=== PATIENT | male | born 1980 | race American Indian/Alaskan Native ===

== ENCOUNTER 2017-11-13 07:13 | Emergency (ER) | payer OTHER ==
--- NOTE | 2017-11-13 09:02 | Emergency Department Report ---
HPI - General Chief Complaint: Psych Time Seen by Provider: 11/13/17 08:49 - HPI HPI: [facility] The patient is a 37-year-old male presenting with a chief complaint of suicidal ideation. The patient states he got into an argument with his girlfriend and "swallowed bleach." The patient states at 04:30 he took one swig of bleach, realized it tasted nasty and spit it out. Patient denies any other ingestions or attempt at harming himself. Patient complains of mild tingling of his lips currently otherwise asymptomatic. The patient states it was household bleach. Patient was brought in by police under a 1013 that documents "subject crying. Depressed. Drank bleach in an apparent suicide attempt." Location: Mental state Duration: [See above] Quality: Suicidal Severity: Severe Modifying factors: [see above] Context: [see above] Mode of transportation: [not driving] ED Past Medical Hx - Past Medical History Hx Asthma: Yes - Surgical History Past Surgical History?: Yes Hx Appendectomy: Yes Additional Surgical History: wrist fracture - Family History Family history: no significant - Social History Smoking Status: Never Smoker Substance Use Type: None (denies illicit drug use), Alcohol (occasional) ED Review of Systems ROS: Stated complaint: MH Other details as noted in HPI Neurological: paresthesias Psychiatric: suicidal thoughts Physical Exam - Physical Exam Vital Signs: Vital Signs 11/13/17 11/13/17 07:59 08:20 Temperature 98.6 F 97.6 F Pulse Rate 55 L 55 L Respiratory 18 18 Rate Blood Pressure 117/76 Blood Pressure 117/76 [Left] O2 Sat by Pulse 99 99 Oximetry Physical Exam: GENERAL: The patient is well-developed well-nourished male sitting in chair not appearing to be in acute distress. [] HEENT: Normocephalic. Atraumatic. Extraocular motions are intact. Patient has moist mucous membranes. Oropharynx clear. No evidence of lindsay/irritation to the lips or oral mucosal NECK: Supple. Trachea midline CHEST/LUNGS: Clear to auscultation. There is no respiratory distress noted. HEART/CARDIOVASCULAR: Regular. There is no tachycardia. There is no gallop rub or murmur. ABDOMEN: Abdomen is soft, nontender. Patient has normal bowel sounds. There is no abdominal distention. SKIN: There is no rash. There is no edema. There is no diaphoresis. NEURO: The patient is awake, alert, and oriented. The patient is cooperative. The patient has normal speech MUSCULOSKELETAL: There is no evidence of acute injury. ED Course Vital Signs 11/13/17 11/13/17 07:59 08:20 Temperature 98.6 F 97.6 F Pulse Rate 55 L 55 L Respiratory 18 18 Rate Blood Pressure 117/76 Blood Pressure 117/76 [Left] O2 Sat by Pulse 99 99 Oximetry - Consultations Consultation #1: 11/13/17 09:04 Poison control called 11/13/17 09:10 Recommend symptomatic and supportive care. May have patient drink water ED Medical Decision Making - Lab Data Result diagrams: 11/13/17 10:03 11/13/17 10:03 Laboratory Tests 11/13/17 11/13/17 11/13/17 10:03 10:03 10:03 WBC RBC Hgb Hct MCV MCH MCHC RDW Plt Count Lymph % (Auto) [place] % (Auto) Eos % (Auto) Baso % (Auto) Lymph # [place] # Eos # Baso # Seg Neutrophils % Seg Neutrophils # Sodium 140 Potassium 4.6 Chloride 101.6 Carbon Dioxide 26 Anion Gap 17 BUN 9 Creatinine 0.8 Estimated GFR > 60 BUN/Creatinine Ratio 11 Glucose 91 Calcium 9.4 Salicylates < 0.3 L Acetaminophen < 15.0 Plasma/Serum Alcohol 11/13/17 11/13/17 10:03 10:03 WBC 6.3 RBC 5.01 Hgb 15.5 H Hct 47.3 H MCV 94 MCH 31 MCHC 33 RDW 14.3 Plt Count 267 Lymph % (Auto) 37.9 H [place] % (Auto) 6.5 Eos % (Auto) 0.3 Baso % (Auto) 0.4 Lymph # 2.4 [place] # 0.4 Eos # 0.0 Baso # 0.0 Seg Neutrophils % 54.9 Seg Neutrophils # 3.5 Sodium Potassium Chloride Carbon Dioxide Anion Gap BUN Creatinine Estimated GFR BUN/Creatinine Ratio Glucose Calcium Salicylates Acetaminophen Plasma/Serum Alcohol < 0.01 - Differential Diagnosis suicidal ideation Critical care attestation.: If time is entered above; I have spent that time in minutes in the direct care of this critically ill patient, excluding procedure time. ED Disposition Clinical Impression: Suicidal ideation Disposition: [id number]/TX-65 PSY HOSP/PSY UNIT Is pt being admited?: No Does the pt Need Aspirin: No Condition: Serious Referrals: PRIMARY CARE, [Primary Care Provider] - 3-5 Days Time of Disposition: 16:15 (awaiting placement)
[2017-11-13 10:10] LABS: Basophils % (Auto) 0.4 % (0.0-1.8); Eosinophils % (Auto) 0.3 % (0.0-4.3); Hematocrit 47.3 % (35.5-45.6); Hemoglobin 15.5 gm/dl (11.8-15.2); Lymphocytes # (Auto) 2.4 K/mm3 (1.2-5.4); Lymphocytes % (Auto) 37.9 % (13.4-35.0); Mean Corpuscular HGB Conc 33 % (32-34); Mean Corpuscular Hemoglobin 31 pg (28-32); Mean Corpuscular Volume 94 fl (84-94); Monocytes # (Auto) 0.4 K/mm3 (0.0-0.8); Monocytes % (Auto) 6.5 % (0.0-7.3); Platelet Count 267 K/mm3 (140-440); Red Blood Count 5.01 M/mm3 (3.65-5.03); Red Cell Distribution Width 14.3 % (13.2-15.2)
[2017-11-13 10:48] LABS: BUN/Creatinine Ratio 11; Blood Urea Nitrogen 9 mg/dL (9-20); Calcium 9.4 mg/dL (8.4-10.2); Hemolysis Index 8
--- NOTE | 2017-11-13 13:14 | Consultation ---
History of Present Illness - Reason for Consult Consult date: 11/13/17 Reason for consult: Mental Health Evaluation Requesting physician: EMERSON JOHNSON - Chief Complaint Chief complaint: "I don't know why I did it" - History of Present Psychiatric Illness The patient is a 37-year-old male presenting with a chief complaint of suicidal ideation. Today the patient is calm and cooperative during the assessment. He stated that he drink bleach after getting into an argument with his girlfriend. He stated that he was upset and didn't realize what he was doing. He stated that this is his first time trying to harm himself. He denies wanting to kill himself prior to his admission. Per the record the patient was brought in to the ER in 2016 for possible depression. He stated that he argues with people frequently when he feel they are not listening to him and or not getting his way. He stated that his "anger" has always been an issue in his life. He denies SI/HI's and AVH's. He denies sleep disturbance and a poor appetite. He denies recreational drug use and alcohol consumption (etoh). Medications and Allergies Allergies Allergy/AdvReac Type Severity Reaction Status Date / Time shrimp Allergy Vomiting Verified 04/02/16 00:24 Home Medications Medication Instructions Recorded Confirmed Last Taken Type No Known Home Medications [No 11/13/17 11/13/17 Unknown History Reported Home Medications] Past psychiatric history - Past Medical History Past Medical History: No medical history Past Surgical History: No surgical history - past Psychiatric treatment and history psychiatric treatment history: Denies a psy hx. Denies a fam psy hx. - Social History Social history: lives with family (HS and College Graduate) Mental Status Exam - Vital signs Last Vital Signs Temp 97.6 F 11/13/17 08:20 Pulse 55 L 11/13/17 08:20 Resp 18 11/13/17 08:20 BP 117/76 11/13/17 08:20 Pulse Ox 99 11/13/17 08:20 - Exam Narrative exam: MSE: Appearance: calm, cooperative Behavior: good eye contact Speech: regular rate and tone Mood: "okay" Affect: congruent to mood Thought Process: circumstantial Thought Content: denies SI/HI's and AVH's Motor Activity: ambulatory Cognition: A/O x3 Insight: fair Judgment: variable Results Result Diagrams: 11/13/17 10:03 11/13/17 10:03 Abnormal lab results 11/13/17 Range/Units 10:03 Hgb 15.5 H (11.8-15.2) gm/dl Hct 47.3 H (35.5-45.6) % Lymph % (Auto) 37.9 H (13.4-35.0) % All other labs normal. Assessment and Plan Assessment and plan: Impression: Unspecified Mood DO. Today the patient is calm and cooperative during the assessment. UDS has not been collected. DDx: R/O Bipolar DO, R/O MDD, R/O Personality DO Recommendation/Plan: Continue 1013 with placement to inpatient psy services. Gather collateral information to determine proper treatment.
--- NOTE | 2017-11-14 10:07 | Progress Note ---
Subjective - Reason for Consult Consult date: 11/14/17 Reason for consult: Psychiatry Follow-up - Chief Complaint Chief complaint: "Hello" The patient is a 37-year-old male presenting with a chief complaint of suicidal ideation. Today the patient is calm and cooperative during the assessment. He stated that he would like to speak with a therapist about his anger once discharged. He stated that he spoke with a therapist in the past, but he felt like the person wasn't certified and it wasn't a good fit. He stated that he want to get a better "handle" on how to deal with crisis and not act out. He denies SI/HI's and AVH's. Mental Status Exam - Vital signs Last Vital Signs Temp 97.8 F 11/14/17 08:16 Pulse 63 11/14/17 08:16 Resp 16 11/14/17 08:18 BP 114/68 11/14/17 08:16 Pulse Ox 99 11/14/17 08:18 - Exam Narrative exam: MSE: Appearance: calm, cooperative Behavior: good eye contact Speech: regular rate and tone Mood: "okay" Affect: congruent to mood Thought Process: circumstantial Thought Content: denies SI/HI's and AVH's Motor Activity: ambulatory Cognition: A/O x3 Insight: fair Judgment: variable Assessment and Plan Impression: Unspecified Mood DO. Today the patient is calm and cooperative during the assessment. UDS has not been collected. DDx: R/O Bipolar DO, R/O MDD, R/O Personality DO Recommendation/Plan: Continue 1013 with placement to inpatient psy services. Patient would like to speak with a therapist for anger management once discharged.
--- NOTE | 2017-11-16 10:16 | Progress Note ---
Subjective - Reason for Consult Consult date: 11/16/17 Reason for consult: Psychiatry Follow-up - Chief Complaint Chief complaint: "Good morning" The patient is a 37-year-old male presenting with a chief complaint of suicidal ideation. Today the patient is calm and cooperative during the assessment. He stated that he reflected on his actions prior his before his admission. He stated that he should have made a better decision other than drink a small amount of bleach prior to his admission to the hospital. He denies SI/HI's and AVH's. Mental Status Exam - Vital signs Last Vital Signs Temp 98.4 F 11/15/17 09:27 Pulse 62 11/15/17 09:27 Resp 16 11/15/17 10:03 BP 112/71 11/15/17 09:27 Pulse Ox 98 11/15/17 10:03 - Exam Narrative exam: MSE: Appearance: calm, cooperative Behavior: good eye contact Speech: regular rate and tone Mood: "okay" Affect: congruent to mood Thought Process: linear Thought Content: denies SI/HI's and AVH's Motor Activity: ambulatory Cognition: A/O x3 Insight: fair Judgment: fair Assessment and Plan Impression: Unspecified Mood DO. Today the patient is calm and cooperative during the assessment. UDS was not collected. DDx: R/O Bipolar DO, R/O MDD, R/O Personality DO Recommendation/Plan: Evaluate 1013 in 24 hours. Patient would like to speak with a therapist for anger management once discharged.
[2017-11-17 09:07] VITALS: BP 111/69
--- NOTE | 2017-11-17 09:48 | Progress Note ---
Subjective - Reason for Consult Consult date: 11/17/17 Reason for consult: Psychiatry Follow-up - Chief Complaint Chief complaint: "How are you" The patient is a 37-year-old male presenting with a chief complaint of suicidal ideation. Today the patient is calm and cooperative during the assessment. He was told that he would be transferred to [facility] today. He is adamant that he should have not drink bleach prior to his admission to [facility]. He stated, "I made a bad choice." He denies SI/HI's and AVH's. Mental Status Exam - Vital signs Last Vital Signs Temp 98.2 F 11/17/17 09:06 Pulse 57 L 11/17/17 09:06 Resp 18 11/17/17 09:06 BP 111/69 11/17/17 09:06 Pulse Ox 99 11/17/17 09:06 - Exam Narrative exam: MSE: Appearance: calm, cooperative Behavior: good eye contact Speech: regular rate and tone Mood: "okay" Affect: congruent to mood Thought Process: linear Thought Content: denies SI/HI's and AVH's Motor Activity: ambulatory Cognition: A/O x3 Insight: fair Judgment: fair Assessment and Plan Impression: Unspecified Mood DO. Today the patient is calm and cooperative during the assessment. UDS was not collected. DDx: R/O Bipolar DO, R/O MDD, R/O Personality DO Recommendation/Plan: Continue 101[address] [facility] today.
== END 2017-11-17 09:11 ==
LOC: EEVIPCON 07:13 → ED 07:13
DX: R45.851 Suicidal ideations (principal)
CPT/HCPCS: 36415; 80048; 85025; 99285; G0480; 80320